=== PATIENT | female | born 1950 | race Caucasian/White ===

== ENCOUNTER → 2019-04-23 08:08 | Day surgery (SDC) | payer MEDICARE ==
[~2019-04-23 08:08] MED LIST: Buffered Lidocaine 1% SYRIN* 1 ML/SYRINGE INTRADERM ONE; Bupivacaine 0.25% SDV PF* 10 ML VIAL INJ ONE; Bupivacaine 0.5%* 50 ML VIAL ONE; Lactated Ringers 1000 ML Bag* 1,000 ML IV SCH; Lidocaine 1% INJ* 10 MG/ML 30 ML SDV ONE; Lidocaine 2% PF * 5 ML VIAL ONE; Midazolam* 1 MG/ML 2 ML VIAL (2 MG) ONE; Naloxone* 0.4 MG/ML 1 ML VIAL IV PRN; Propofol* 10 MG/ML 20 ML BTL ONE; ceFAZolin 2 GM in NS PREMIX(*) 2 GM/100 ML BAG IVPB ONE; fentaNYL* 50 MCG/ML 2 ML VIAL (100 MCG VIAL) ONE
[2019-04-23 12:05] VITALS: BP 137/82
--- NOTE | 2019-04-23 20:46 | OP ---
DATE OF OPERATION: 04/23/19 - [facility] DATE OF : 52 SURGEON: See Murray MD ANESTHESIOLOGIST: Dr. Tan. ANESTHESIA: Local MAC. PRE-OP DIAGNOSIS: Failed back syndrome. POST-OP DIAGNOSIS: Failed back syndrome. OPERATIVE PROCEDURE: Removal of dorsal column stimulator generator. FLUIDS: Per Anesthesia. ESTIMATED BLOOD LOSS: Less than 50 cc. BRIEF PREOPERATIVE NOTE: The patient is a 68-year-old female who has had multiple back surgeries and lumbar fusions and has had a dorsal column stimulator in place for treatment of her pain in the past. She subsequently underwent further fusion surgery with Dr. Mcpherson in [place] and she has had almost complete resolution of her pain and had no use for the dorsal column stimulator anymore and wanted the IPG removed. I explained to the patient that I was unable to remove the paddle lead that is in place given the fact that I am not a neurosurgeon and would need to be removed by a neurosurgeon if she wanted that removed. However, I did explain to that I could take out the IPG if that is what she wanted. She stated that she just wanted the IPG out at this point and I explained to her that she would not be able to have an MRI because of the paddle leads still being in place and if she wanted to have that removed in the future, she could. I was also going to try to leave the leads intact and usable, so in the future she has some reason that she wants to have the dorsal column stimulator replaced, she can use the paddle lead that is in place now. I explained the risks, benefits, and alternatives to therapy with her including the risk of bleeding, infection, hematoma formation and after going over the risks, benefits and alternatives, informed consent was obtained. DESCRIPTION OF PROCEDURE: The patient was brought to the operating suite, placed prone on the operative table. Her right flank was prepped and draped in the usual sterile fashion. I identified the prior incision and anesthetized the skin and subcutaneous tissues with 1% lidocaine mixed with 0.25% bupivacaine. I then used a 15 blade to make a skin incision and dissected down to the IPG. I removed the IPG from the pocket. I used a screwdriver to unscrew the leads. I did bing the lead that went into the A port with a black marker and left the other lead without any marking, so in the future if the leads need to be used, the black marked lead could be placed into the A port of the [email or web address] generator. The leads were then folded on itself and tied with 3 interrupted 0 silk sutures to create a bundle that was in place inside the pocket and sutured with interrupted 3-0 Polysorb sutures to the capsule. The space of the capsule was then closed with 3-0 interrupted Polysorb sutures. Hemostasis was obtained with electrocautery. The wound was irrigated copiously with irrigant solution. I then closed the deeper tissues with interrupted 3-0 Polysorb suture followed by running 3-0 subcuticular Monocryl closure. DermaFlex and Steri-Strips were placed. The wound was infiltrated with 0.5% bupivacaine. Sterile dressings were placed on the wound and the patient was brought to the recovery room in stable condition. She will follow up with me in 10 to 14 days. [id number]/CPS #: [id number] MTDD
== END | disposition home or self-care (01) ==
LOC: OR 08:08
PROVIDERS: ATTEND Anesthesiology Pain Medicine
DX: T85.890A Other specified complication of nervous system prosthetic devices, implants and grafts, initial encounter (principal); M54.16 Radiculopathy, lumbar region; G47.33 Obstructive sleep apnea (adult) (pediatric); I10 Essential (primary) hypertension; M19.90 Unspecified osteoarthritis, unspecified site; Z85.828 Personal history of other malignant neoplasm of skin; F32.9 Major depressive disorder, single episode, unspecified; Z79.891 Long term (current) use of opiate analgesic; M06.9 Rheumatoid arthritis, unspecified
CPT/HCPCS: 88300; J0690; J2250; J2704; J3010; J3490